=== PATIENT | female | born 1950 | race African-American/Black ===

== ENCOUNTER 2018-02-15 17:27 | Inpatient (IN) | payer OTHER, MEDICAID ==
[~2018-02-15] VITALS: Ht 167.6 cm; Wt 83.5 kg
[2018-02-15] MEDS ORDERED: METHYLPREDNISOLONE SOD SUCC 125 MG/2 ML VIAL IV STA (17:50)
[2018-02-15] MEDS ORDERED: ASPIRIN 81MG TABLET PO ONE (18:00)
[2018-02-15] MEDS ORDERED: IPRATROPIUM/ALBUTEROL 0.5-3(2.5)MG/3ML NEB HHN ONE (18:00)
[2018-02-15] MEDS ORDERED: LEVOFLOXACIN 750MG PREMIX 150 ML IV ONE (18:00)
[2018-02-15] MEDS ORDERED: FUROSEMIDE 40MG/4ML VIAL IV ONE (18:00)
[2018-02-15 18:18] LABS: HEMATOCRIT. 23.2 % (36.0-48.0); HEMOGLOBIN. 7.7 g/dL (12.0-16.0); MEAN CORPUSCULAR HEMOGLOBIN 29.3 pg (28.0-32.0); MEAN CORPUSCULAR VOLUME 88.3 fL (81.0-99.0); MEAN PLATELET VOLUME 8.7 fl (7.4-10.4); PLATELET 250 x1000/uL (130-400); RED BLOOD CELL COUNT 2.63 mill/uL (4.2-5.4); RED CELL DISTRIBUTION WIDTH 16.5 % (11.6-14.6)
[2018-02-15 18:22] LABS: CHLORIDE 105 mEq/L (98-107)
[2018-02-15 18:24] LABS: PARTIAL THROMBOPLASTIN TIME 32.7 sec (23.4-31.0); PROTHROMBIN TIME 10.3 sec (9.1-11.1)
[2018-02-15 18:31] LABS: BG BASE EXCESS -2.7 mmol/L (-2.0-2.0); BG CARBOXYHEMOGLOBIN 0.1 % (0.5-1.5); BG DEOXYHEMOGLOBIN 10.1 % (0.0-5.0); BG FRACTION INSPIRED OXYGEN 32; BG HCO3 ACT 21.1 mmol/L (22.0-26.0); BG METHEMOGLOBIN 0.6 % (0.0-1.5); BG OXYGEN SATURATION 89.8 % (92.0-98.5); BG OXYHEMOGLOBIN 89.2 % (94.0-97.0); BG PCO2 32.2 mmHg (35.0-45.0); BG PH 7.435 (7.350-7.450); BG PO2 59.2 mmHg (75.0-100.0); BG SAMPLE SITE RIGHT RADIAL; BG TOTAL HEMOGLOBIN 7.8 g/dL (12.0-18.0); BG VENT MODE NASAL CANNULA
[2018-02-15 18:49] LABS: PLATELET ESTIMATE NORMAL
[2018-02-15] MEDS ORDERED: TRAMADOL 50MG TABLET PO ONE (21:00)
[2018-02-16] VITALS (14 sets, daily range): BP systolic 120–161; BP diastolic 66–98
[2018-02-16] MEDS ORDERED: DEXTROSE 50% WATER 50ML SYRINGE IV PRN (04:45)
[2018-02-16] MEDS ORDERED: MORPHINE SULFATE 4 MG/ML CPJ (NOT FOR IM USE) IV PRN (04:45)
[2018-02-16] MEDS ORDERED: METHYLPREDNISOLONE SOD SUCC 40 MG/ML VIAL IV SCH (06:00)
[2018-02-16] MEDS ORDERED: SODIUM CHLORIDE 0.45% 1,000 ML IV SCH (06:00)
[2018-02-16] MEDS: BLOOD SUGAR DIAGNOSTIC STRIP TEST SCH ×4 (08:18→21:00)
[2018-02-16] MEDS: PANTOPRAZOLE SODIUM 40 MG/VIAL IV SCH (08:44)
[2018-02-16] MEDS: INSULIN LISPRO 100 UNITS/ML SUBCUT SCH ×4 (08:45→22:19)
[2018-02-16] MEDS ORDERED: ENOXAPARIN 40MG/0.4ML SYR SUBCUT SCH (09:00)
[2018-02-16] MEDS ORDERED: LEVOFLOXACIN 500MG PREMIX 100 ML IV SCH (09:00)
[2018-02-16] MEDS: IPRATROPIUM/ALBUTEROL 0.5-3(2.5)MG/3ML NEB HHN SCH ×4 (09:47→20:59)
[2018-02-16 12:35] LABS: BG BASE EXCESS -2.1 mmol/L (-2.0-2.0); BG CARBOXYHEMOGLOBIN 0.5 % (0.5-1.5); BG FRACTION INSPIRED OXYGEN 21; BG HCO3 ACT 20.2 mmol/L (22.0-26.0); BG METHEMOGLOBIN 0.3 % (0.0-1.5); BG OXYGEN SATURATION 84.9 % (92.0-98.5); BG OXYHEMOGLOBIN 84.2 % (94.0-97.0); BG PCO2 25.1 mmHg (35.0-45.0); BG PH 7.523 (7.350-7.450); BG PO2 46.8 mmHg (75.0-100.0); BG SAMPLE SITE RIGHT RADIAL; BG TOTAL HEMOGLOBIN 7.8 g/dL (12.0-18.0); BG VENT MODE ROOM AIR
[2018-02-16] MEDS ORDERED: HYDROCODONE/ACETAMINOPHEN 5/325MG TABLET PO PRN (12:45)
[2018-02-16] MEDS: FUROSEMIDE 40MG/4ML VIAL IVP SCH (12:56)
[2018-02-16] MEDS: ACETAMINOPHEN 325MG TABLET PO PRN ×2 (12:56→21:56)
[2018-02-16 16:56] LABS: HEMATOCRIT 23.6 % (36.0-48.0); HEMOGLOBIN 7.8 g/dL (12.0-16.0); MEAN CORPUSCULAR VOLUME 87.3 fL (81.0-99.0); PLATELET 287 x1000/uL (130-400); RED CELL DISTRIBUTION WIDTH 16.1 % (11.6-14.6)
[2018-02-16 17:04] LABS: CHLORIDE 106 mEq/L (98-107)
[2018-02-16] MEDS: BUDESONIDE 0.5MG/2ML NEB HHN SCH (17:09)
[2018-02-16 17:14] LABS: LDL CHOLESTEROL 70 mg/dL (5-100); T4 FREE 1.13 ng/dL (0.76-1.46)
[2018-02-16 17:16] LABS: HDL CHOLESTEROL 41 mg/dL (40-59)
[2018-02-16 17:21] LABS: TOTAL IRON BINDING CAPACITY 144 ug/dL (250-450)
[2018-02-16] MEDS ORDERED: HYDR-4001 MT (17:29)
[2018-02-16] MEDS ORDERED: ATOR10TA69 MT (17:29)
[2018-02-16] MEDS ORDERED: HYDR10TA14 MT (17:29)
[2018-02-16] MEDS ORDERED: CILO100T MT (17:29)
[2018-02-16] MEDS ORDERED: HYDR20TA3 MT (17:29)
[2018-02-16] MEDS ORDERED: DICL75TA5 MT (17:29)
[2018-02-16] MEDS ORDERED: POTA8CAP10 MT (17:29)
[2018-02-16] MEDS ORDERED: AMLO10TA80 MT (17:29)
[2018-02-16] MEDS ORDERED: LEVO150T8 MT (17:29)
[2018-02-16] MEDS ORDERED: CARV25TA47 MT (17:29)
[2018-02-16] MEDS ORDERED: CLOP75TA33 MT (17:29)
[2018-02-16] MEDS ORDERED: INSU100I24 SQ (17:29)
[2018-02-16] MEDS ORDERED: FURO40TA5 MT (17:29)
[2018-02-16] MEDS ORDERED: NITR0.4T49 SL (17:29)
[2018-02-16] MEDS ORDERED: ALBU90AE INH (17:29)
[2018-02-16] MEDS ORDERED: ESOM40CA53 MT (17:29)
[2018-02-16] MEDS ORDERED: GABA800T97 MT (17:29)
[2018-02-16] MEDS ORDERED: ISOS30TA12 MT (17:29)
[2018-02-16] MEDS: PIPERACILLIN/TAZ 3.375G PREMIX 50 ML IV SCH ×2 (18:20→23:56)
[2018-02-16] MEDS: MONTELUKAST SODIUM 10MG TABLET PO SCH (18:20)
[2018-02-16] MEDS ORDERED: VANCOMYCIN 1500MG in DEXTROSE 5% WATER 250ML IV NR (18:30)
[2018-02-16] MEDS: TRAMADOL 50MG TABLET PO PRN (18:40)
[2018-02-16] MEDS ORDERED: LEVOFLOXACIN 250MG PREMIX 50 ML IV SCH (19:00)
[2018-02-16] MEDS: METHYLPREDNISOLONE SOD SUCC 40 MG/ML VIAL IV SCH (21:56)
[2018-02-17] VITALS (16 sets, daily range): BP systolic 104–163; BP diastolic 38–88
[2018-02-17] MEDS: IPRATROPIUM/ALBUTEROL 0.5-3(2.5)MG/3ML NEB HHN SCH ×6 (01:03→19:58)
[2018-02-17 02:15] LABS: HEMATOCRIT 26.7 % (36.0-48.0); HEMOGLOBIN 8.9 g/dL (12.0-16.0)
[2018-02-17] MEDS: TRAMADOL 50MG TABLET PO PRN (02:39)
[2018-02-17] MEDS: PIPERACILLIN/TAZ 3.375G PREMIX 50 ML IV SCH ×3 (06:03→18:47)
[2018-02-17] MEDS: METHYLPREDNISOLONE SOD SUCC 40 MG/ML VIAL IV SCH ×2 (06:03→12:35)
[2018-02-17 07:14] LABS: CLARITY URINE TURBID (CLEAR); COLOR URINE YELLOW (YELLOW); KETONES URINE NEGATIVE (NEGATIVE); LEUKOCYTE ESTERASE URINE 2+ (NEGATIVE); NITRITE URINE NEGATIVE (NEGATIVE); OCCULT BLOOD URINE 3+ (NEGATIVE); PH URINE 6.5 (4.5-8.0); PROTEIN URINE NEGATIVE (NEGATIVE); SPECIFIC GRAVITY URINE 1.015 (1.005-1.030); UROBILINOGEN URINE 0.2 E.U./dL (0.2-1.0)
[2018-02-17 07:51] LABS: *AMPHETAMINES SCREEN URINE NEGATIVE (NEGATIVE); *BARBITURATES SCREEN URINE NEGATIVE (NEGATIVE); *BENZODIAZEPINES SCREEN URINE PRESUMTIVE POSITIVE (NEGATIVE)
[2018-02-17 07:52] LABS: *COCAINE SCREEN URINE NEGATIVE (NEGATIVE); CANNABINOID URINE SCREEN NEGATIVE (NEGATIVE); OPIATES URINE SCREEN PRESUMTIVE POSITIVE (NEGATIVE); PHENCYCLIDINE URINE SCREEN NEGATIVE (NEGATIVE)
[2018-02-17 08:01] LABS: BG BASE EXCESS -3.1 mmol/L (-2.0-2.0); BG CARBOXYHEMOGLOBIN 0.3 % (0.5-1.5); BG DEOXYHEMOGLOBIN 13.7 % (0.0-5.0); BG FRACTION INSPIRED OXYGEN 36; BG HCO3 ACT 19.5 mmol/L (22.0-26.0); BG METHEMOGLOBIN 0.3 % (0.0-1.5); BG OXYGEN SATURATION 86.2 % (92.0-98.5); BG OXYHEMOGLOBIN 85.7 % (94.0-97.0); BG PCO2 27.6 mmHg (35.0-45.0); BG PH 7.467 (7.350-7.450); BG PO2 51.4 mmHg (75.0-100.0); BG SAMPLE SITE RIGHT RADIAL; BG TOTAL HEMOGLOBIN 11.3 g/dL (12.0-18.0); BG VENT MODE NASAL CANNULA
[2018-02-17 08:02] LABS: METHADONE URINE SCREEN NEGATIVE (NEGATIVE)
[2018-02-17] MEDS: BLOOD SUGAR DIAGNOSTIC STRIP TEST SCH ×4 (08:25→21:25)
[2018-02-17] MEDS: FUROSEMIDE 40MG/4ML VIAL IVP SCH (08:32)
[2018-02-17] MEDS: PANTOPRAZOLE SODIUM 40 MG/VIAL IV SCH (08:32)
[2018-02-17] MEDS: LORATADINE 10MG TABLET PO SCH (08:33)
[2018-02-17] MEDS: INSULIN LISPRO 100 UNITS/ML SUBCUT SCH ×4 (08:33→21:25)
[2018-02-17] MEDS: BUDESONIDE 0.5MG/2ML NEB HHN SCH ×2 (08:34→19:58)
[2018-02-17] MEDS: ISOSORBIDE DINITRATE 30MG TABLET PO SCH (12:36)
[2018-02-17] MEDS: FERROUS SULFATE 325MG TABLET PO SCH ×2 (12:36→18:47)
[2018-02-17] MEDS: LEVOTHYROXINE SODIUM 150MCG TABLET PO SCH (12:36)
[2018-02-17] MEDS: AMLODIPINE 10MG TABLET PO SCH (12:36)
[2018-02-17] MEDS: CARVEDILOL 25MG TABLET PO SCH ×2 (12:36→21:24)
[2018-02-17 14:00] LABS: BG BASE EXCESS -0.5 mmol/L (-2.0-2.0); BG CARBOXYHEMOGLOBIN 0.2 % (0.5-1.5); BG FRACTION INSPIRED OXYGEN 36; BG HCO3 ACT 21.2 mmol/L (22.0-26.0); BG METHEMOGLOBIN 0.1 % (0.0-1.5); BG OXYHEMOGLOBIN 87.7 % (94.0-97.0); BG PCO2 25.4 mmHg (35.0-45.0); BG PH 7.539 (7.350-7.450); BG PO2 50.6 mmHg (75.0-100.0); BG SAMPLE SITE RIGHT RADIAL; BG TOTAL HEMOGLOBIN 9.9 g/dL (12.0-18.0); BG VENT MODE NASAL CANNULA
[2018-02-17] MEDS ORDERED: INSULIN GLARGINE UD 100 UNITS/ML SYR SUBCUT NR (14:00)
[2018-02-17] MEDS ORDERED: LORAZEPAM 0.5MG TABLET PO PRN (14:15)
[2018-02-17 15:28] LABS: HEMOGLOBIN 9.3 g/dL (12.0-16.0); MEAN CORPUSCULAR HEMOGLOBIN 28.4 pg (28.0-32.0); MEAN CORPUSCULAR VOLUME 85.3 fL (81.0-99.0); PLATELET 295 x1000/uL (130-400); RED BLOOD CELL COUNT 3.28 mill/uL (4.2-5.4); RED CELL DISTRIBUTION WIDTH 17.2 % (11.6-14.6)
[2018-02-17] MEDS ORDERED: VANCOMYCIN 1 G PREMIX 200 ML IV SCH (18:30)
[2018-02-17] MEDS: MONTELUKAST SODIUM 10MG TABLET PO SCH (18:47)
[2018-02-17] MEDS: ATORVASTATIN CALCIUM 10MG TABLET PO SCH (21:24)
[2018-02-18] VITALS (15 sets, daily range): BP systolic 95–158; BP diastolic 23–94
[2018-02-18] MEDS: IPRATROPIUM/ALBUTEROL 0.5-3(2.5)MG/3ML NEB HHN SCH ×7 (00:11→23:26)
[2018-02-18] MEDS: AZITHROMYCIN 500 MG in DEXT 5% WATER 250 ML IV SCH (01:15)
[2018-02-18] MEDS: PIPERACILLIN/TAZ 3.375G PREMIX 50 ML IV SCH ×3 (01:15→18:38)
[2018-02-18 06:58] LABS: HEMATOCRIT 28.8 % (36.0-48.0); HEMOGLOBIN 9.7 g/dL (12.0-16.0); MEAN CORPUSCULAR HEMOGLOBIN 28.8 pg (28.0-32.0); MEAN CORPUSCULAR VOLUME 85.1 fL (81.0-99.0); PLATELET 325 x1000/uL (130-400); RED BLOOD CELL COUNT 3.38 mill/uL (4.2-5.4); RED CELL DISTRIBUTION WIDTH 17.7 % (11.6-14.6)
[2018-02-18 07:14] LABS: BG BASE EXCESS 1.6 mmol/L (-2.0-2.0); BG CARBOXYHEMOGLOBIN 0.4 % (0.5-1.5); BG DEOXYHEMOGLOBIN 17.8 % (0.0-5.0); BG FRACTION INSPIRED OXYGEN 35; BG HCO3 ACT 24.3 mmol/L (22.0-26.0); BG METHEMOGLOBIN 0.1 % (0.0-1.5); BG OXYGEN SATURATION 82.1 % (92.0-98.5); BG OXYHEMOGLOBIN 81.7 % (94.0-97.0); BG PCO2 31.1 mmHg (35.0-45.0); BG PO2 46.2 mmHg (75.0-100.0); BG SAMPLE SITE RIGHT BRACHIAL; BG TOTAL HEMOGLOBIN 10.3 g/dL (12.0-18.0); BG VENT MODE MASK - VENTI
[2018-02-18] MEDS: BLOOD SUGAR DIAGNOSTIC STRIP TEST SCH ×4 (07:30→21:00)
[2018-02-18] MEDS: INSULIN LISPRO 100 UNITS/ML SUBCUT SCH ×4 (08:00→21:00)
[2018-02-18] MEDS: BUDESONIDE 0.5MG/2ML NEB HHN SCH (08:24)
[2018-02-18] MEDS: FERROUS SULFATE 325MG TABLET PO SCH ×2 (10:54→18:39)
[2018-02-18] MEDS: FUROSEMIDE 40MG/4ML VIAL IVP SCH (10:54)
[2018-02-18] MEDS: LORATADINE 10MG TABLET PO SCH (10:54)
[2018-02-18] MEDS: ISOSORBIDE DINITRATE 30MG TABLET PO SCH (10:54)
[2018-02-18] MEDS: CARVEDILOL 25MG TABLET PO SCH ×2 (11:03→21:00)
[2018-02-18] MEDS: LEVOTHYROXINE SODIUM 150MCG TABLET PO SCH (11:03)
[2018-02-18] MEDS: AMLODIPINE 10MG TABLET PO SCH (11:12)
[2018-02-18] MEDS: PANTOPRAZOLE SODIUM 40 MG/VIAL IV SCH (11:12)
[2018-02-18 11:25] LABS: BG BASE EXCESS 1.1 mmol/L (-2.0-2.0); BG CARBOXYHEMOGLOBIN 0.3 % (0.5-1.5); BG DEOXYHEMOGLOBIN 5.7 % (0.0-5.0); BG HCO3 ACT 23.7 mmol/L (22.0-26.0); BG METHEMOGLOBIN 0.1 % (0.0-1.5); BG OXYGEN SATURATION 94.3 % (92.0-98.5); BG OXYHEMOGLOBIN 93.9 % (94.0-97.0); BG PCO2 30.4 mmHg (35.0-45.0); BG PH 7.509 (7.350-7.450); BG PO2 72.5 mmHg (75.0-100.0); BG SAMPLE SITE RIGHT BRACHIAL; BG TOTAL HEMOGLOBIN 10.5 g/dL (12.0-18.0); BG VENT MODE MASK - BIPAP; BG VENT RATE 16 set
[2018-02-18] MEDS ORDERED: LORAZEPAM 2MG/ML CPJ IV PRN (12:30)
[2018-02-18] MEDS ORDERED: LACTULOSE 20G/30ML UDC PO NR (17:45)
[2018-02-18] MEDS ORDERED: FUROSEMIDE 40MG/4ML VIAL IVP NR (17:45)
[2018-02-18] MEDS: VANCOMYCIN 1 G PREMIX 200 ML IV SCH (18:38)
[2018-02-18] MEDS: MONTELUKAST SODIUM 10MG TABLET PO SCH (18:38)
[2018-02-18] MEDS: ATORVASTATIN CALCIUM 10MG TABLET PO SCH (21:00)
[2018-02-18] MEDS ORDERED: MORPHINE SULFATE 2 MG/ML CPJ (NOT FOR IM USE) IV PRN (21:45)
[2018-02-18] MEDS: INSULIN GLARGINE UD 100 UNITS/ML SYR SUBCUT SCH (22:00)
[2018-02-18] MEDS: LORAZEPAM 2MG/ML CPJ IV PRN (22:09)
[2018-02-19] VITALS (19 sets, daily range): BP systolic 85–163; BP diastolic 48–96
[2018-02-19] MEDS: FUROSEMIDE 40MG/4ML VIAL IVP SCH ×3 (01:05→18:48)
[2018-02-19] MEDS: LORAZEPAM 2MG/ML CPJ IV PRN (02:04)
[2018-02-19] MEDS: PIPERACILLIN/TAZ 3.375G PREMIX 50 ML IV SCH ×4 (02:34→17:09)
[2018-02-19] MEDS: AZITHROMYCIN 500 MG in DEXT 5% WATER 250 ML IV SCH (02:36)
[2018-02-19] MEDS: IPRATROPIUM/ALBUTEROL 0.5-3(2.5)MG/3ML NEB HHN SCH ×5 (03:53→20:16)
[2018-02-19] MEDS: LACTULOSE 20G/30ML UDC PO SCH ×4 (06:00→16:56)
[2018-02-19 06:59] LABS: BASOPHILS % 0.2 % (0.0-2.0); EOSINOPHILS % 1.1 % (0.0-5.0); HEMATOCRIT. 31.7 % (36.0-48.0); HEMOGLOBIN. 10.6 g/dL (12.0-16.0); LYMPHOCYTES % 10.6 % (20.0-50.0); MEAN CORPUSCULAR HEMOGLOBIN 28.6 pg (28.0-32.0); MEAN CORPUSCULAR VOLUME 85.2 fL (81.0-99.0); MEAN PLATELET VOLUME 8.2 fl (7.4-10.4); MONOCYTES % 5.6 % (2.0-8.0); NEUTROPHILS % 82.5 % (40.0-76.0); PLATELET 340 x1000/uL (130-400); RED BLOOD CELL COUNT 3.72 mill/uL (4.2-5.4); RED CELL DISTRIBUTION WIDTH 16.8 % (11.6-14.6)
[2018-02-19] MEDS: LEVOTHYROXINE SODIUM 150MCG TABLET PO SCH (07:03)
[2018-02-19 07:05] LABS: CHLORIDE 99 mEq/L (98-107)
[2018-02-19] MEDS: BLOOD SUGAR DIAGNOSTIC STRIP TEST SCH ×4 (07:30→21:07)
[2018-02-19] MEDS: BUDESONIDE 0.5MG/2ML NEB HHN SCH (08:15)
[2018-02-19] MEDS: INSULIN LISPRO 100 UNITS/ML SUBCUT SCH ×4 (08:29→21:00)
[2018-02-19] MEDS ORDERED: LIDOCAINE HCL 1% 20ML VIAL (Pyxis) INJ ONE (09:09)
[2018-02-19] MEDS: PANTOPRAZOLE SODIUM 40 MG/VIAL IV SCH (09:37)
[2018-02-19] MEDS: LORATADINE 10MG TABLET PO SCH (09:37)
[2018-02-19] MEDS: FERROUS SULFATE 325MG TABLET PO SCH ×3 (09:37→16:56)
[2018-02-19] MEDS: AMLODIPINE 10MG TABLET PO SCH (09:38)
[2018-02-19] MEDS: ISOSORBIDE DINITRATE 30MG TABLET PO SCH (09:38)
[2018-02-19] MEDS: CARVEDILOL 25MG TABLET PO SCH ×2 (09:39→21:08)
[2018-02-19] MEDS: VANCOMYCIN 1 G PREMIX 200 ML IV SCH (10:55)
[2018-02-19] MEDS: KCL 20MEQ/100ML PREMIX 100 ML IV SCH ×3 (11:04→14:05)
[2018-02-19 11:08] LABS: BG BASE EXCESS 5.2 mmol/L (-2.0-2.0); BG CARBOXYHEMOGLOBIN 0.4 % (0.5-1.5); BG DEOXYHEMOGLOBIN 14.7 % (0.0-5.0); BG FRACTION INSPIRED OXYGEN 32; BG HCO3 ACT 26.4 mmol/L (22.0-26.0); BG METHEMOGLOBIN 0.3 % (0.0-1.5); BG OXYGEN SATURATION 85.2 % (92.0-98.5); BG OXYHEMOGLOBIN 84.6 % (94.0-97.0); BG PCO2 27.8 mmHg (35.0-45.0); BG PH 7.595 (7.350-7.450); BG PO2 44.7 mmHg (75.0-100.0); BG SAMPLE SITE RIGHT RADIAL; BG TOTAL HEMOGLOBIN 11.3 g/dL (12.0-18.0); BG VENT MODE NASAL CANNULA
[2018-02-19] MEDS ORDERED: FUROSEMIDE 40MG/4ML VIAL IVP NR (12:45)
[2018-02-19 15:01] LABS: BG BASE EXCESS 3.5 mmol/L (-2.0-2.0); BG CARBOXYHEMOGLOBIN 0.8 % (0.5-1.5); BG DEOXYHEMOGLOBIN 8.4 % (0.0-5.0); BG FRACTION INSPIRED OXYGEN 50; BG HCO3 ACT 25.4 mmol/L (22.0-26.0); BG METHEMOGLOBIN 0.1 % (0.0-1.5); BG OXYGEN SATURATION 91.5 % (92.0-98.5); BG OXYHEMOGLOBIN 90.7 % (94.0-97.0); BG PO2 57.6 mmHg (75.0-100.0); BG SAMPLE SITE RIGHT RADIAL; BG TOTAL HEMOGLOBIN 9.9 g/dL (12.0-18.0); BG VENT MODE MASK - VENTI
[2018-02-19] MEDS: MONTELUKAST SODIUM 10MG TABLET PO SCH (16:55)
[2018-02-19] MEDS: ATORVASTATIN CALCIUM 10MG TABLET PO SCH (21:06)
[2018-02-19] MEDS: ENOXAPARIN 30MG/0.3ML SYR SUBCUT SCH (21:07)
[2018-02-19] MEDS: INSULIN GLARGINE UD 100 UNITS/ML SYR SUBCUT SCH (21:16)
[2018-02-20] VITALS (21 sets, daily range): BP systolic 94–134; BP diastolic 38–79
[2018-02-20] MEDS: LACTULOSE 20G/30ML UDC PO SCH ×3 (00:19→12:01)
[2018-02-20] MEDS: PIPERACILLIN/TAZ 3.375G PREMIX 50 ML IV SCH ×5 (00:19→23:36)
[2018-02-20] MEDS: IPRATROPIUM/ALBUTEROL 0.5-3(2.5)MG/3ML NEB HHN SCH ×6 (00:34→20:03)
[2018-02-20] MEDS: AZITHROMYCIN 500 MG in DEXT 5% WATER 250 ML IV SCH (02:46)
[2018-02-20] MEDS: VANCOMYCIN 1500MG in DEXTROSE 5% WATER 250ML IV SCH (05:53)
[2018-02-20] MEDS: FUROSEMIDE 40MG/4ML VIAL IVP SCH ×2 (05:53→18:18)
[2018-02-20 07:56] LABS: HEMOGLOBIN 11.1 g/dL (12.0-16.0); MEAN CORPUSCULAR HEMOGLOBIN 28.8 pg (28.0-32.0); MEAN CORPUSCULAR VOLUME 85.6 fL (81.0-99.0); PLATELET 317 x1000/uL (130-400); RED BLOOD CELL COUNT 3.85 mill/uL (4.2-5.4)
[2018-02-20] MEDS: INSULIN LISPRO 100 UNITS/ML SUBCUT SCH ×4 (08:00→21:35)
[2018-02-20] MEDS: ISOSORBIDE DINITRATE 30MG TABLET PO SCH ×3 (08:32→09:02)
[2018-02-20] MEDS: PANTOPRAZOLE SODIUM 40 MG/VIAL IV SCH ×2 (08:32→09:03)
[2018-02-20] MEDS: FERROUS SULFATE 325MG TABLET PO SCH ×4 (08:32→18:18)
[2018-02-20] MEDS: CLOPIDOGREL 75MG TABLET PO SCH ×2 (08:33→09:02)
[2018-02-20] MEDS: LEVOTHYROXINE SODIUM 150MCG TABLET PO SCH ×2 (08:33→08:50)
[2018-02-20 08:35] LABS: CHLORIDE 101 mEq/L (98-107)
[2018-02-20] MEDS: CARVEDILOL 25MG TABLET PO SCH ×3 (08:35→21:36)
[2018-02-20 08:42] LABS: BG BASE EXCESS 6.2 mmol/L (-2.0-2.0); BG CARBOXYHEMOGLOBIN 1.1 % (0.5-1.5); BG DEOXYHEMOGLOBIN 8.2 % (0.0-5.0); BG FRACTION INSPIRED OXYGEN 50; BG METHEMOGLOBIN 0.2 % (0.0-1.5); BG OXYGEN SATURATION 91.7 % (92.0-98.5); BG OXYHEMOGLOBIN 90.5 % (94.0-97.0); BG PCO2 31.1 mmHg (35.0-45.0); BG PH 7.572 (7.350-7.450); BG PO2 57.4 mmHg (75.0-100.0); BG SAMPLE SITE RIGHT RADIAL; BG TOTAL HEMOGLOBIN 12.4 g/dL (12.0-18.0); BG VENT MODE MASK - VENTI
[2018-02-20] MEDS: AMLODIPINE 10MG TABLET PO SCH (09:01)
[2018-02-20] MEDS: ENOXAPARIN 30MG/0.3ML SYR SUBCUT SCH ×2 (09:03→21:36)
[2018-02-20] MEDS: BLOOD SUGAR DIAGNOSTIC STRIP TEST SCH ×4 (12:00→21:00)
[2018-02-20] MEDS ORDERED: POTASSIUM CHLORIDE INJ 40 MEQ in DEXT 5% WATER 250 ML IV NR (12:30)
[2018-02-20] MEDS: LORATADINE 10MG TABLET PO SCH (13:57)
[2018-02-20] MEDS: TRAMADOL 50MG TABLET PO PRN (14:00)
[2018-02-20] MEDS: MONTELUKAST SODIUM 10MG TABLET PO SCH (18:19)
[2018-02-20] MEDS: ATORVASTATIN CALCIUM 10MG TABLET PO SCH (21:35)
[2018-02-20] MEDS: INSULIN GLARGINE UD 100 UNITS/ML SYR SUBCUT SCH (21:37)
[2018-02-21] VITALS (13 sets, daily range): BP systolic 88–112; BP diastolic 58–74
[2018-02-21] MEDS: IPRATROPIUM/ALBUTEROL 0.5-3(2.5)MG/3ML NEB HHN SCH ×6 (00:07→20:37)
[2018-02-21] MEDS: VANCOMYCIN 1500MG in DEXTROSE 5% WATER 250ML IV SCH ×2 (00:32→17:46)
[2018-02-21] MEDS: AZITHROMYCIN 500 MG in DEXT 5% WATER 250 ML IV SCH (02:25)
[2018-02-21] MEDS: PIPERACILLIN/TAZ 3.375G PREMIX 50 ML IV SCH ×3 (05:31→17:46)
[2018-02-21] MEDS: FUROSEMIDE 40MG/4ML VIAL IVP SCH ×2 (05:31→17:45)
[2018-02-21 07:15] LABS: HEMATOCRIT 33.2 % (36.0-48.0); MEAN CORPUSCULAR HEMOGLOBIN 28.6 pg (28.0-32.0); MEAN CORPUSCULAR VOLUME 85.9 fL (81.0-99.0); PLATELET 298 x1000/uL (130-400); RED BLOOD CELL COUNT 3.86 mill/uL (4.2-5.4); RED CELL DISTRIBUTION WIDTH 16.8 % (11.6-14.6)
[2018-02-21 07:19] LABS: CHLORIDE 99 mEq/L (98-107)
[2018-02-21] MEDS: BLOOD SUGAR DIAGNOSTIC STRIP TEST SCH ×4 (07:38→21:00)
[2018-02-21] MEDS: POTASSIUM CHLORIDE 20MEQ TABLET SR PO SCH (08:30)
[2018-02-21] MEDS: CARVEDILOL 25MG TABLET PO SCH ×2 (08:30→21:00)
[2018-02-21] MEDS: FERROUS SULFATE 325MG TABLET PO SCH ×3 (08:30→17:55)
[2018-02-21] MEDS: LORATADINE 10MG TABLET PO SCH (08:30)
[2018-02-21] MEDS: PANTOPRAZOLE SODIUM 40 MG/VIAL IV SCH (08:31)
[2018-02-21] MEDS: LACTULOSE 20G/30ML UDC PO SCH (08:31)
[2018-02-21] MEDS: ENOXAPARIN 30MG/0.3ML SYR SUBCUT SCH ×2 (08:31→21:31)
[2018-02-21] MEDS: INSULIN LISPRO 100 UNITS/ML SUBCUT SCH ×4 (08:33→21:00)
[2018-02-21] MEDS: AMLODIPINE 10MG TABLET PO SCH (09:00)
[2018-02-21] MEDS: CLOPIDOGREL 75MG TABLET PO SCH (09:56)
[2018-02-21] MEDS: ISOSORBIDE DINITRATE 30MG TABLET PO SCH (09:56)
[2018-02-21 10:08] LABS: BG BASE EXCESS 4.7 mmol/L (-2.0-2.0); BG CARBOXYHEMOGLOBIN 0.7 % (0.5-1.5); BG DEOXYHEMOGLOBIN 9.6 % (0.0-5.0); BG FRACTION INSPIRED OXYGEN 28; BG OXYGEN SATURATION 90.3 % (92.0-98.5); BG OXYHEMOGLOBIN 89.7 % (94.0-97.0); BG PCO2 32.3 mmHg (35.0-45.0); BG PO2 56.6 mmHg (75.0-100.0); BG SAMPLE SITE RIGHT BRACHIAL; BG TOTAL HEMOGLOBIN 11.8 g/dL (12.0-18.0); BG VENT MODE NASAL CANNULA
[2018-02-21] MEDS ORDERED: POTASSIUM CHLORIDE 20MEQ TABLET SR PO NR (11:00)
[2018-02-21 13:06] LABS: ANTI-MYELOPEROXIDASE AB < 9.0 U/mL (0.0-9.0); ANTI-PROTEINASE 3 ABS < 3.5 U/mL (0.0-3.5)
[2018-02-21 15:11] LABS: ATYPICAL P-ANCA <1:20 titer (Neg:<1:20); CYTOPLASMIC C-ANCA <1:20 titer (Neg:<1:20); PERINUCLEAR P-ANCA <1:20 titer (Neg:<1:20)
[2018-02-21 17:06] LABS: ANA IFA Negative (.)
[2018-02-21] MEDS: MONTELUKAST SODIUM 10MG TABLET PO SCH (18:15)
[2018-02-21] MEDS: ATORVASTATIN CALCIUM 10MG TABLET PO SCH (21:29)
[2018-02-21] MEDS: AZITHROMYCIN 500 MG TABLET PO SCH (21:29)
[2018-02-21] MEDS: INSULIN GLARGINE UD 100 UNITS/ML SYR SUBCUT SCH (22:07)
[2018-02-22] VITALS (11 sets, daily range): BP systolic 94–128; BP diastolic 51–74
[2018-02-22] MEDS: IPRATROPIUM/ALBUTEROL 0.5-3(2.5)MG/3ML NEB HHN SCH ×6 (00:42→20:12)
[2018-02-22] MEDS: PIPERACILLIN/TAZ 3.375G PREMIX 50 ML IV SCH ×5 (00:43→23:52)
[2018-02-22] MEDS: FUROSEMIDE 40MG/4ML VIAL IVP SCH ×2 (05:55→17:46)
[2018-02-22] MEDS: LEVOTHYROXINE SODIUM 150MCG TABLET PO SCH (05:55)
[2018-02-22] MEDS: BLOOD SUGAR DIAGNOSTIC STRIP TEST SCH ×4 (07:14→21:00)
[2018-02-22] MEDS: ENOXAPARIN 30MG/0.3ML SYR SUBCUT SCH ×2 (08:06→21:50)
[2018-02-22] MEDS: LORATADINE 10MG TABLET PO SCH (08:06)
[2018-02-22] MEDS: POTASSIUM CHLORIDE 20MEQ TABLET SR PO SCH (08:06)
[2018-02-22] MEDS: LACTULOSE 20G/30ML UDC PO SCH (08:06)
[2018-02-22] MEDS: CLOPIDOGREL 75MG TABLET PO SCH (08:06)
[2018-02-22] MEDS: FERROUS SULFATE 325MG TABLET PO SCH ×3 (08:07→17:48)
[2018-02-22] MEDS: PANTOPRAZOLE SODIUM 40 MG/VIAL IV SCH (08:07)
[2018-02-22] MEDS: ISOSORBIDE DINITRATE 30MG TABLET PO SCH (08:08)
[2018-02-22] MEDS: INSULIN LISPRO 100 UNITS/ML SUBCUT SCH ×4 (08:11→21:00)
[2018-02-22] MEDS: AMLODIPINE 10MG TABLET PO SCH (08:11)
[2018-02-22] MEDS: CARVEDILOL 25MG TABLET PO SCH ×2 (08:22→22:10)
[2018-02-22] MEDS: MONTELUKAST SODIUM 10MG TABLET PO SCH (17:47)
[2018-02-22] MEDS: AZITHROMYCIN 500 MG TABLET PO SCH (21:49)
[2018-02-22] MEDS: ATORVASTATIN CALCIUM 10MG TABLET PO SCH (21:49)
[2018-02-22] MEDS: INSULIN GLARGINE UD 100 UNITS/ML SYR SUBCUT SCH (23:50)
[2018-02-23] MEDS: IPRATROPIUM/ALBUTEROL 0.5-3(2.5)MG/3ML NEB HHN SCH ×5 (00:01→20:34)
[2018-02-23] MEDS: VANCOMYCIN 1 G PREMIX 200 ML IV SCH ×2 (00:37→18:39)
[2018-02-23] MEDS: PIPERACILLIN/TAZ 3.375G PREMIX 50 ML IV SCH ×3 (06:00→18:39)
[2018-02-23] MEDS: FUROSEMIDE 40MG/4ML VIAL IVP SCH ×2 (06:01→18:39)
[2018-02-23] MEDS: LEVOTHYROXINE SODIUM 150MCG TABLET PO SCH (06:01)
[2018-02-23] MEDS: BLOOD SUGAR DIAGNOSTIC STRIP TEST SCH ×4 (07:30→20:56)
[2018-02-23 08:00] VITALS: BP 113/68
[2018-02-23] MEDS: INSULIN LISPRO 100 UNITS/ML SUBCUT SCH ×4 (08:30→20:56)
[2018-02-23] MEDS: AMLODIPINE 10MG TABLET PO SCH (09:00)
[2018-02-23] MEDS: CARVEDILOL 25MG TABLET PO SCH ×2 (09:00→20:57)
[2018-02-23 09:13] LABS: BG BASE EXCESS 1.9 mmol/L (-2.0-2.0); BG CARBOXYHEMOGLOBIN 0.7 % (0.5-1.5); BG DEOXYHEMOGLOBIN 2.2 % (0.0-5.0); BG FRACTION INSPIRED OXYGEN 36; BG HCO3 ACT 24.5 mmol/L (22.0-26.0); BG METHEMOGLOBIN 0.2 % (0.0-1.5); BG OXYGEN SATURATION 97.8 % (92.0-98.5); BG OXYHEMOGLOBIN 96.9 % (94.0-97.0); BG PCO2 32.1 mmHg (35.0-45.0); BG PH 7.501 (7.350-7.450); BG PO2 101.3 mmHg (75.0-100.0); BG SAMPLE SITE LEFT RADIAL; BG VENT MODE NASAL CANNULA
[2018-02-23] MEDS: FERROUS SULFATE 325MG TABLET PO SCH ×3 (09:34→18:39)
[2018-02-23] MEDS: LORATADINE 10MG TABLET PO SCH (09:34)
[2018-02-23] MEDS: CLOPIDOGREL 75MG TABLET PO SCH (09:34)
[2018-02-23] MEDS: POTASSIUM CHLORIDE 20MEQ TABLET SR PO SCH (09:34)
[2018-02-23] MEDS: LACTULOSE 20G/30ML UDC PO SCH ×2 (09:35→18:38)
[2018-02-23] MEDS: ISOSORBIDE DINITRATE 30MG TABLET PO SCH (09:35)
[2018-02-23] MEDS: PANTOPRAZOLE SODIUM 40 MG/VIAL IV SCH (09:35)
[2018-02-23] MEDS: ENOXAPARIN 30MG/0.3ML SYR SUBCUT SCH (09:36)
[2018-02-23 09:56] LABS: HEMATOCRIT 32.2 % (36.0-48.0); HEMOGLOBIN 10.9 g/dL (12.0-16.0); MEAN CORPUSCULAR HEMOGLOBIN 29.1 pg (28.0-32.0); MEAN CORPUSCULAR VOLUME 85.7 fL (81.0-99.0); PLATELET 309 x1000/uL (130-400); RED BLOOD CELL COUNT 3.76 mill/uL (4.2-5.4); RED CELL DISTRIBUTION WIDTH 16.9 % (11.6-14.6)
[2018-02-23] MEDS ORDERED: LACTULOSE 20G/30ML UDC PO NR (10:30)
[2018-02-23] MEDS: LORAZEPAM 2MG/ML CPJ IV PRN (11:15)
[2018-02-23 12:00] VITALS: BP 107/62
[2018-02-23 16:00] VITALS: BP 127/73
[2018-02-23] MEDS ORDERED: POTASSIUM CHLORIDE 20MEQ TABLET SR PO NR (16:40)
[2018-02-23] MEDS: MONTELUKAST SODIUM 10MG TABLET PO SCH (18:38)
[2018-02-23 20:00] VITALS: BP 98/70
[2018-02-23] MEDS: AZITHROMYCIN 500 MG TABLET PO SCH (20:52)
[2018-02-23] MEDS: ATORVASTATIN CALCIUM 10MG TABLET PO SCH (20:52)
[2018-02-23] MEDS: ACETAMINOPHEN 325MG TABLET PO PRN (20:53)
[2018-02-23] MEDS: INSULIN GLARGINE UD 100 UNITS/ML SYR SUBCUT SCH (21:01)
[2018-02-23 22:00] VITALS: BP 116/74
[2018-02-24] VITALS (7 sets, daily range): BP systolic 111–128; BP diastolic 55–75
[2018-02-24] MEDS: IPRATROPIUM/ALBUTEROL 0.5-3(2.5)MG/3ML NEB HHN SCH ×4 (00:22→17:56)
[2018-02-24] MEDS: PIPERACILLIN/TAZ 3.375G PREMIX 50 ML IV SCH ×4 (00:54→17:46)
[2018-02-24] MEDS: FUROSEMIDE 40MG/4ML VIAL IVP SCH ×2 (06:03→17:42)
[2018-02-24 06:07] LABS: HEMATOCRIT 33.8 % (36.0-48.0); HEMOGLOBIN 11.3 g/dL (12.0-16.0); MEAN CORPUSCULAR HEMOGLOBIN 28.5 pg (28.0-32.0); MEAN CORPUSCULAR VOLUME 85.6 fL (81.0-99.0); PLATELET 327 x1000/uL (130-400); RED BLOOD CELL COUNT 3.95 mill/uL (4.2-5.4); RED CELL DISTRIBUTION WIDTH 16.5 % (11.6-14.6)
[2018-02-24] MEDS: BLOOD SUGAR DIAGNOSTIC STRIP TEST SCH ×3 (07:42→17:41)
[2018-02-24] MEDS: AMLODIPINE 10MG TABLET PO SCH (08:14)
[2018-02-24] MEDS: ISOSORBIDE DINITRATE 30MG TABLET PO SCH (08:14)
[2018-02-24] MEDS: FERROUS SULFATE 325MG TABLET PO SCH ×3 (08:20→17:46)
[2018-02-24] MEDS: POTASSIUM CHLORIDE 20MEQ TABLET SR PO SCH (08:20)
[2018-02-24] MEDS: LEVOTHYROXINE SODIUM 150MCG TABLET PO SCH (08:20)
[2018-02-24 08:21] LABS: BG BASE EXCESS 1.8 mmol/L (-2.0-2.0); BG CARBOXYHEMOGLOBIN 0.7 % (0.5-1.5); BG DEOXYHEMOGLOBIN 5.2 % (0.0-5.0); BG FRACTION INSPIRED OXYGEN 21; BG HCO3 ACT 24.7 mmol/L (22.0-26.0); BG METHEMOGLOBIN 0.1 % (0.0-1.5); BG OXYGEN SATURATION 94.8 % (92.0-98.5); BG PCO2 33.2 mmHg (35.0-45.0); BG PO2 71.4 mmHg (75.0-100.0); BG SAMPLE SITE RIGHT RADIAL; BG TOTAL HEMOGLOBIN 11.7 g/dL (12.0-18.0); BG VENT MODE ROOM AIR
[2018-02-24] MEDS: PANTOPRAZOLE SODIUM 40 MG/VIAL IV SCH (08:21)
[2018-02-24] MEDS: CARVEDILOL 25MG TABLET PO SCH (08:21)
[2018-02-24] MEDS: CLOPIDOGREL 75MG TABLET PO SCH (08:23)
[2018-02-24] MEDS: LACTULOSE 20G/30ML UDC PO SCH ×2 (08:23→17:00)
[2018-02-24] MEDS: LORATADINE 10MG TABLET PO SCH (08:38)
[2018-02-24] MEDS: INSULIN LISPRO 100 UNITS/ML SUBCUT SCH ×3 (08:38→17:41)
[2018-02-24] MEDS ORDERED: ENOXAPARIN 40MG/0.4ML SYR SUBCUT SCH (09:00)
[2018-02-24] MEDS: VANCOMYCIN 1 G PREMIX 200 ML IV SCH (11:44)
[2018-02-24] MEDS: MONTELUKAST SODIUM 10MG TABLET PO SCH (17:46)
== END 2018-02-24 20:10 | DRG 871 ==
LOC: ER 17:27 → EDBEDREQSVC 18:33 → 5EST 20:59 → EDBEDREQTM 21:05 → EDBEDREQ 21:05 → ENRESERV 02-16 01:58
PROVIDERS: ADMIT Internal Medicine; ATTEND Internal Medicine
PROC: 5A09357 Assistance with Respiratory Ventilation, Less than 24 Consecutive Hours, Continuous Positive Airway Pressure (ICD-10-PCS; 2018-02-15)
PROC: 30233N1 Transfusion of Nonautologous Red Blood Cells into Peripheral Vein, Percutaneous Approach (ICD-10-PCS; 2018-02-16)
PROC: 5A09357 Assistance with Respiratory Ventilation, Less than 24 Consecutive Hours, Continuous Positive Airway Pressure (ICD-10-PCS; 2018-02-17)
PROC: 5A09357 Assistance with Respiratory Ventilation, Less than 24 Consecutive Hours, Continuous Positive Airway Pressure (ICD-10-PCS; 2018-02-17)
PROC: 5A09357 Assistance with Respiratory Ventilation, Less than 24 Consecutive Hours, Continuous Positive Airway Pressure (ICD-10-PCS; 2018-02-18)
PROC: 02HV33Z Insertion of Infusion Device into Superior Vena Cava, Percutaneous Approach (ICD-10-PCS; principal; 2018-02-19)
PROC: B548ZZA Ultrasonography of Superior Vena Cava, Guidance (ICD-10-PCS; 2018-02-19)
PROC: 5A09357 Assistance with Respiratory Ventilation, Less than 24 Consecutive Hours, Continuous Positive Airway Pressure (ICD-10-PCS; 2018-02-22)
DX: A41.9 Sepsis, unspecified organism (principal); J96.01 Acute respiratory failure with hypoxia; G93.41 Metabolic encephalopathy; J18.9 Pneumonia, unspecified organism; I50.33 Acute on chronic diastolic (congestive) heart failure; I13.0 Hypertensive heart and chronic kidney disease with heart failure and stage 1 through stage 4 chronic kidney disease, or unspecified chronic kidney disease; J44.1 Chronic obstructive pulmonary disease with (acute) exacerbation; J44.0 Chronic obstructive pulmonary disease with (acute) lower respiratory infection; E72.20 Disorder of urea cycle metabolism, unspecified; F20.0 Paranoid schizophrenia; N39.0 Urinary tract infection, site not specified; I69.354 Hemiplegia and hemiparesis following cerebral infarction affecting left non-dominant side; E66.2 Morbid (severe) obesity with alveolar hypoventilation; K92.2 Gastrointestinal hemorrhage, unspecified; D64.9 Anemia, unspecified; E03.9 Hypothyroidism, unspecified; E11.22 Type 2 diabetes mellitus with diabetic chronic kidney disease; E61.1 Iron deficiency; I27.20 Pulmonary hypertension, unspecified; N18.9 Chronic kidney disease, unspecified; Z85.038 Personal history of other malignant neoplasm of large intestine; Z88.5 Allergy status to narcotic agent; Z68.29 Body mass index [BMI] 29.0-29.9, adult; R26.9 Unspecified abnormalities of gait and mobility
CPT/HCPCS: 36415; 36569; 36600; 71045; 71250; 74018; 76770; 76937; 78582; 80048; 80061; 80202; 80305; 82140; 82375; 82728; 82805; 82962; 83036; 83520; 83540; 83550; 83605; 83880; 84439; 84443; 84484; 85014; 85018; 85027; 86256; 86850; 86900; 86920; 93005; 93306; 93970; 94640; 94660; 96365; 96375; 97110; 97162; 97530; 99291; A9558; C1725; C1893; C9113; J0456; J1650; J1815; J1940; J1956; J2060; J2543; J2920; J2930; J3370; J3480; J3490; J7050; J7060; J7620; J7626; P9016; A4315